=== PATIENT | male | born 1975 | race Caucasian/White ===

== ENCOUNTER 2016-08-19 14:52 | Emergency (ER) | payer MEDICAID ==
[2016-08-19 15:16] VITALS: BP 131/78
[2016-08-19] MEDS ORDERED: Mupirocin 2% OINT* TUBE TOPICAL ONE ×2 (15:19→15:55)
--- NOTE | 2016-08-19 15:29 | UC ---
HPI Wound/Suture Re-check - HPI Summary HPI Summary: inside left lower calf got cut by a metal grinder 6 external sutures placed 1 week ago some erythema around wound has been treating with NIKOLAS and peroxide, no streaking no fevers - History Of Current Complaint Chief Complaint: [facility]CSkin Stated Complaint: SUTURE REMOVAL Time Seen by Provider: 08/19/16 15:16 Hx Obtained From: Patient Onset/Duration: Sudden Onset, Still Present Severity: Moderate Pain Intensity: 0 Pain Scale Used: 0-10 Numeric Surgery Date: 08/12/16 - Allergies/Home Medications Allergies/Adverse Reactions: Allergies Allergy/AdvReac Type Severity Reaction Status Date / Time No Known Allergies Allergy Verified 08/19/16 15:16 Home Medications: Home Medications Antibiotics BID 08/19/16 [History] PMH/Surg Hx/FS Hx/Imm Hx Previously Healthy: No Endocrine History Of: Denies: Diabetes, Thyroid Disease Cardiovascular History Of: Denies: Cardiac Disorders, Hypertension Respiratory History Of: Reports: Asthma Denies: COPD GI/ History Of: Denies: Ulcer Psychological History Of: Denies: Anxiety Cancer History Of: Denies: Lung Cancer - Surgical History Surgical History: Yes Surgery Procedure, Year, and Place: right knee - Family History Known Family History: Positive: None - Social History Occupation: Employed Full-time Lives: With Family Alcohol Use: Occasionally Substance Use Type: None Smoking Status (MU): Heavy Every Day Tobacco Smoker Amount Used/How Often: 2 ppd Length of Time of Smoking/Using Tobacco: started ~ age 13 Have You Smoked in the Last Year: Yes Household Exposure Type: Cigarettes Cessation Counseling: Patient Advised to Stop Review of Systems Constitutional: Negative Skin: Other - healing wound with erythma and purulent scabbing not tender, no drainage, no streaking---patient reports in his much better than a few days ago and he is taking antibiodic as planned has 3 days remaining Eyes: Negative ENT: Negative Respiratory: Negative Cardiovascular: Negative Gastrointestinal: Negative Genitourinary: Negative Motor: Negative Neurovascular: Negative Musculoskeletal: Negative Neurological: Negative Psychological: Negative All Other Systems Reviewed And Are Negative: Yes Physical Exam Triage Information Reviewed: Yes Appearance: Well-Appearing, No Pain Distress, Well-Nourished Vital Signs: Initial Vital Signs Temp 97.9 F 08/19/16 15:11 Pulse 86 08/19/16 15:11 Resp 16 08/19/16 15:11 BP 131/78 08/19/16 15:11 Pulse Ox 96 08/19/16 15:11 Vital Signs Reviewed: Yes Eye Exam: Normal Eyes: Positive: Conjunctiva Clear ENT Exam: Normal ENT: Positive: Normal ENT inspection, Hearing grossly normal. Negative: Nasal congestion, Nasal drainage, Trismus, Muffled/hoarse voice Dental Exam: Normal Neck exam: Normal Neck: Negative: Supple, Nontender Respiratory Exam: Normal Respiratory: Positive: Chest non-tender, No respiratory distress, No accessory muscle use Cardiovascular Exam: Normal Cardiovascular: Positive: RRR, Pulses Normal, Brisk Capillary Refill Abdominal Exam: Normal Musculoskeletal Exam: Normal Musculoskeletal: Positive: Strength Intact, ROM Intact, No Edema Neurological Exam: Normal Neurological: Positive: Alert, Muscle Tone Normal, Fatigued Psychological Exam: Normal Skin Exam: Normal Skin: Positive: Other - healing wound right calf Re-Evaluation - Re-Evaluation First Eval Change: Unchanged - sutures removed wound remains well approximated, intact, Bactroban and telfa dressing applied Course/Dx - Course Course Of Treatment: soap and water wash BID followed by thin layer bactroban and telfa, finish antibiodics, follow with pcp - Differential Dx - Laceration/Wound Differential Diagnoses: Cellulitis, Dehiscence, Healing Wound, Suture Removal Provider Diagnoses: Suture removal healing wound left lower leg Discharge - Discharge Plan Condition: Stable Disposition: HOME Patient Education Materials: Mupirocin (On the skin), Stitches Removal (ED) Referrals: TARA Patricia [Medical Doctor] - If Needed
== END 2016-08-19 15:43 | disposition home or self-care (01) ==
LOC: UCCORT 14:52
DX: Z48.02 Encounter for removal of sutures (principal); F17.210 Nicotine dependence, cigarettes, uncomplicated
CPT/HCPCS: 99212; G0463